=== PATIENT | male | born 1970 | race Caucasian/White ===

== ENCOUNTER 2022-10-29 12:32 | Outpatient (OUT) | payer OTHER, SELFPAY ==
[2022-10-29 14:43] LABS: Alanine Aminotransferase 27 U/L (16-63); Albumin Globulin Ratio 0.9; Albumin Level 3.7 g/dL (3.4-5.0); Alkaline Phosphatase 52 U/L (46-116); Aspartate Amino Transferase 17 U/L (15-37); BUN Creatinine Ratio 16.5; Bilirubin Total 0.3 mg/dL (0.2-1.0); Calcium 8.9 mg/dL (8.5-10.1); Carbon Dioxide 27.8 mmol/L (21.0-32.0); Chloride 101 mmol/L (98-107); Chol HDL Ratio 4.1; Cholesterol 161 mg/dL (<=200); Estimated GFR (African America >60 (>=60); Estimated GFR (Non-African Ame >60 (>=60); Globulin 3.9 g/dL; Glucose 139 mg/dL (74-106); HDL Cholesterol 39 mg/dL (40-60); Potassium 3.8 mmol/L (3.5-5.1); Sodium 135 mmol/L (136-145); Total Protein 7.6 g/dL (6.4-8.2); Triglycerides 81 mg/dL (<=150); VLDL CHOLESTEROL 16.2 mg/dL
[2022-10-29 14:58] LABS: Estimated Average Glucose 194 mg/dL; Glycohemoglobin A1C 8.4 % (4.5-6.2)
[2022-10-29 15:06] LABS: Prostate Specific Antigen Scrn 1.09 ng/mL (<=4.00)
== END 2022-10-29 12:33 | disposition home or self-care (01) ==
LOC: LAB 12:40
PROVIDERS: PCP Family Medicine; Visit Provider Family Medicine
DX: E11.65 Type 2 diabetes mellitus with hyperglycemia (principal); Z12.5 Encounter for screening for malignant neoplasm of prostate
CPT/HCPCS: 36415; 80053; 80061; 83036; G0103

== ENCOUNTER 2023-09-09 08:03 | Outpatient (OUT) | payer OTHER, SELFPAY ==
--- NOTE | 2023-09-09 08:11 | ECG_ITS ---
[facility] Test Date: 2023-09-09 Pat Name: QING PETIT Department: Room: - Gender: Male [employer]: : [id number] Requested By: SERGEY JENSEN Order Number: [id number] Reading MD: JOYCE MOLINA Measurements Intervals [place] Rate: 55 P: 32 VA: 153 QRS: 14 QRSD: 90 T: 7 QT: 474 QTc: 457 Interpretive Statements SINUS BRADYCARDIA PROLONGED QT INTERVAL No previous ECG available for comparison Electronically Signed On 09-09-2023 22:16:27 EDT by JOYCE MOLINA
[2023-09-09 09:02] LABS: Basophils Absolute Auto 0.1 10^3/uL (0.0-0.1); Basophils Percent Auto 0.9 % (0.2-2.0); Eosinophils Absolute Auto 0.2 10^3/uL (0.0-0.7); Eosinophils Percent Auto 2.6 % (0.9-7.0); Hematocrit 40.4 % (42.0-54.0); Hemoglobin 13.3 g/dL (14.0-18.0); Immature Granulocytes Abs Auto 0.03 10^3/uL (0.00-0.03); Immature Granulocytes Pct Auto 0.4 % (0.0-0.5); Lymphocytes Absolute Auto 2.1 10^3/uL (1.2-3.8); Lymphocytes Percent Auto 26.4 % (20.5-60.0); Mean Corpuscular HGB Conc 32.9 g/dL (29.9-35.2); Mean Corpuscular Hemoglobin 29.8 pg (25.9-34.0); Mean Corpuscular Volume 90.6 fL (80.0-94.0); Mean Platelet Volume 10.6 fL (9.5-13.5); Monocytes Absolute Auto 0.8 10^3/uL (0.3-0.8); Monocytes Percent Auto 9.6 % (1.7-12.0); Neutrophils Absolute Auto 4.8 10^3/uL (1.4-6.5); Neutrophils Percent Auto 60.1 % (43.0-75.0); Platelet Count 252 10^3/uL (150-450); Red Blood Count 4.46 10^6/uL (4.70-6.10); White Blood Count 7.9 10^3/uL (4.0-11.0)
[2023-09-09 09:22] LABS: Anion Gap 12.6; BUN Creatinine Ratio 24.8; Calcium 8.8 mg/dL (8.5-10.1); Carbon Dioxide 28.4 mmol/L (21.0-32.0); Chloride 105 mmol/L (98-107); Estimated GFR (African America >60 (>=60); Estimated GFR (Non-African Ame >60 (>=60); Glucose 118 mg/dL (74-106); Sodium 142 mmol/L (136-145)
[2023-09-09 10:03] LABS: INR 1.03; Partial Thromboplastin Time 33.1 sec (22.3-36.2); Prothrombin Time 10.9 sec (9.0-11.6)
== END 2023-09-09 08:04 | disposition home or self-care (01) ==
LOC: PST 08:04
PROVIDERS: PCP Family Medicine; Visit Provider Otolaryngology
DX: Z01.810 Encounter for preprocedural cardiovascular examination (principal); Z01.812 Encounter for preprocedural laboratory examination; R04.0 Epistaxis; J34.89 Other specified disorders of nose and nasal sinuses
CPT/HCPCS: 80048; 85025; 85610; 85730; 93005

== ENCOUNTER 2023-09-17 10:45 | Day surgery (SDC) | payer OTHER, SELFPAY ==
[2023-09-09 08:48] VITALS: BP 112/74; PULSE 55; TEMP 36.4; O2SAT 99; BMI 32.2
[2023-09-17] VITALS (9 sets, daily range): BP systolic 109–130; BP diastolic 61–78; PULSE 54–62; TEMP 36.3–36.6; O2SAT 86–98; BMI 32.2
--- NOTE | 2023-09-17 | OP_ITS ---
OPERATION DATE: 09/17/2023 PREOPERATIVE DIAGNOSIS: Recurrent epistaxis. POSTOPERATIVE DIAGNOSIS: Recurrent epistaxis. PROCEDURE: Right nasal endoscopy and cautery. ANESTHESIA: General endotracheal. COMPLICATIONS: None. FINDINGS: Multiple prominent right anterior septal veins. INDICATIONS: Patient presents with a couple year history of bleeding twice weekly from the right anterior nose. PROCEDURE: Patient identified in the holding area and taken back to the OR where he was placed in the supine position. After induction of general endotracheal anesthesia, the right nose was approached with a 30 degree nasal endoscope, and under endoscopic guidance, prominent veins of the anterior septum were cauterized with suction Bovie. The remainder of the nose was examined with the endoscope and no other abnormality was noted on the right. The patient was then awakened and taken to the recovery room in good condition. BRANDON
[2023-09-17] MEDS: LACTATED RINGER'S SOLUTION 1,000 ML 50 ML IV (11:18)
[2023-09-17] MEDS: OXYMETAZOLINE HCL 0.05% NASAL SPRAY 30 SPRAY NS (12:05)
[2023-09-17] MEDS: BACITRACIN OINTMENT 28.4 GM TUBE 1 APPLIC TOPICAL (12:05)
== END 2023-09-17 13:14 | disposition home or self-care (01) ==
PROVIDERS: PCP Family Medicine; Visit Provider Otolaryngology
PROC: (CPT 160; principal; 2023-09-17 12:00)
DX: R04.0 Epistaxis (principal); J34.89 Other specified disorders of nose and nasal sinuses; E11.9 Type 2 diabetes mellitus without complications; Z79.84 Long term (current) use of oral hypoglycemic drugs; Z79.85 Long-term (current) use of injectable non-insulin antidiabetic drugs; G47.33 Obstructive sleep apnea (adult) (pediatric); E78.5 Hyperlipidemia, unspecified; I10 Essential (primary) hypertension
CPT/HCPCS: 31238; 36415; J1100; J2250; J2405; J2704

== ENCOUNTER 2024-05-18 09:32 | Outpatient (OUT) | payer OTHER, SELFPAY ==
[2024-05-18 10:08] LABS: Estimated Average Glucose 111 mg/dL; Glycohemoglobin A1C 5.5 % (4.5-6.2)
[2024-05-18 10:22] LABS: Basophils Absolute Auto 0.1 10^3/uL (0.0-0.1); Basophils Percent Auto 0.9 % (0.2-2.0); Eosinophils Absolute Auto 0.2 10^3/uL (0.0-0.7); Eosinophils Percent Auto 2.6 % (0.9-7.0); Hematocrit 39.8 % (42.0-54.0); Hemoglobin 12.5 g/dL (14.0-18.0); Immature Granulocytes Abs Auto 0.02 10^3/uL (0.00-0.03); Immature Granulocytes Pct Auto 0.2 % (0.0-0.5); Lymphocytes Absolute Auto 3.2 10^3/uL (1.2-3.8); Lymphocytes Percent Auto 39.3 % (20.5-60.0); Mean Corpuscular HGB Conc 31.4 g/dL (29.9-35.2); Mean Corpuscular Hemoglobin 29.9 pg (25.9-34.0); Mean Corpuscular Volume 95.2 fL (80.0-94.0); Monocytes Absolute Auto 0.7 10^3/uL (0.3-0.8); Monocytes Percent Auto 8.6 % (1.7-12.0); Neutrophils Absolute Auto 3.9 10^3/uL (1.4-6.5); Neutrophils Percent Auto 48.4 % (43.0-75.0); Platelet Count 205 10^3/uL (150-450); Red Blood Count 4.18 10^6/uL (4.70-6.10); Red Cell Distribution Width 13.3 % (11.0-15.0)
[2024-05-18 10:42] LABS: Alanine Aminotransferase 25 U/L (16-63); Albumin Level 3.4 g/dL (3.4-5.0); Alkaline Phosphatase 54 U/L (46-116); Anion Gap 10.7; Aspartate Amino Transferase 17 U/L (15-37); BUN Creatinine Ratio 24.5; Bilirubin Total 0.4 mg/dL (0.2-1.0); Carbon Dioxide 29.8 mmol/L (21.0-32.0); Chloride 106 mmol/L (98-107); Chol HDL Ratio 2.7; Cholesterol 131 mg/dL (<=200); Estimated GFR (African America >60 (>=60 mL/min/1.73m^2); Estimated GFR (Non-African Ame >60 (>=60 mL/min/1.73m^2); Globulin 3.5 g/dL; Glucose 90 mg/dL (74-106); HDL Cholesterol 49 mg/dL (40-60); LDL Cholesterol Calculated 66.8 mg/dL; Potassium 4.5 mmol/L (3.5-5.1); Sodium 142 mmol/L (136-145); Thyroid Stimulating Hormone 2.452 uIU/mL (0.358-3.740); Total Protein 6.9 g/dL (6.4-8.2); Triglycerides 76 mg/dL (<=150); VLDL CHOLESTEROL 15.2 mg/dL
[2024-05-18 11:35] LABS: Creatinine Urine Random 94.27 mg/dL (20.00-300.00); Microalbum Creatinine Ratio Ur 13.7 mg/g (0.0-29.9); Microalbumin Urine Random <1.3 mg/dL (<=30.0)
[2024-05-18 11:35] LABS: Prostate Specific Antigen Scrn 0.68 ng/mL (<=4.00)
== END 2024-05-18 09:33 | disposition home or self-care (01) ==
PROVIDERS: PCP Family Medicine; Visit Provider Family Medicine
DX: Z00.00 Encounter for general adult medical examination without abnormal findings (principal); E11.65 Type 2 diabetes mellitus with hyperglycemia; Z12.5 Encounter for screening for malignant neoplasm of prostate
CPT/HCPCS: 36415; 80053; 80061; 82043; 82570; 83036; 84443; 85025; G0103

== ENCOUNTER 2024-06-23 07:46 | Outpatient (RCR) | payer OTHER, SELFPAY ==
[2024-06-23 15:59] LABS: Basophils Absolute Auto 0.1 10^3/uL (0.0-0.1); Basophils Percent Auto 0.9 % (0.2-2.0); Eosinophils Absolute Auto 0.2 10^3/uL (0.0-0.7); Eosinophils Percent Auto 2.7 % (0.9-7.0); Hematocrit 41.8 % (42.0-54.0); Hemoglobin 13.7 g/dL (14.0-18.0); Immature Granulocytes Abs Auto 0.01 10^3/uL (0.00-0.03); Immature Granulocytes Pct Auto 0.2 % (0.0-0.5); Lymphocytes Absolute Auto 2.5 10^3/uL (1.2-3.8); Lymphocytes Percent Auto 38.9 % (20.5-60.0); Mean Corpuscular HGB Conc 32.8 g/dL (29.9-35.2); Mean Corpuscular Hemoglobin 30.5 pg (25.9-34.0); Mean Corpuscular Volume 93.1 fL (80.0-94.0); Mean Platelet Volume 10.6 fL (9.5-13.5); Monocytes Absolute Auto 0.5 10^3/uL (0.3-0.8); Monocytes Percent Auto 7.5 % (1.7-12.0); Neutrophils Absolute Auto 3.2 10^3/uL (1.4-6.5); Neutrophils Percent Auto 49.8 % (43.0-75.0); Platelet Count 246 10^3/uL (150-450); Red Blood Count 4.49 10^6/uL (4.70-6.10); Reticulocyte Pct Auto 0.87 % (0.60-3.10); White Blood Count 6.4 10^3/uL (4.0-11.0)
[2024-06-23 16:05] LABS: Erythrocyte Sedimentation Rate 18 mm/hr (<=20)
[2024-06-23 16:17] LABS: Percent Iron Saturation 25.6 %
[2024-06-23 16:18] LABS: C Reactive Protein <0.50 mg/dL (<=0.50); Lactate Dehydrogenase 192 U/L (85-227)
[2024-06-25 03:07] LABS: Vitamin B12 447 pg/mL (232-1245)
[2024-06-26 12:08] LABS: Alpha-1-Globulin 0.3 g/dL (0.0-0.4); Alpha-2-Globulin 0.7 g/dL (0.4-1.0); Free Kappa Lt Chains,S 21.3 mg/L (3.3-19.4); Free Lambda Lt Chains,S 15.6 mg/L (5.7-26.3); Gamma Globulin 1.2 g/dL (0.4-1.8); Immunoglobulin A, Qn, Serum 389 mg/dL (90-386); Immunoglobulin G, Qn, Serum 1241 mg/dL (603-1613); Immunoglobulin M, Qn, Serum 80 mg/dL (20-172); Kappa/Lambda Ratio,S 1.37 (0.26-1.65); Protein, Total 7.4 g/dL (6.0-8.5)
[2024-07-02 10:08] LABS: Immunoglobulin E, Total 416 IU/mL (6-495)
== END 2024-06-24 08:19 | disposition home or self-care (01) ==
LOC: HEMC 07:46
PROVIDERS: PCP Family Medicine; Visit Provider Internal Medicine Hematology & Oncology
DX: D64.9 Anemia, unspecified (principal)
CPT/HCPCS: 36415; 82607; 82728; 82746; 82784; 82785; 83521; 83540; 83550; 83615; 84155; 84165; 85025; 85045; 85652; 86140; 86334; G0463

== ENCOUNTER 2024-07-14 07:38 | Outpatient (RCR) | payer OTHER, SELFPAY | END 2024-07-15 08:32 | disposition home or self-care (01) | LOC: HEMC 07:38 | PROVIDERS: PCP Family Medicine; Visit Provider Internal Medicine Hematology & Oncology | DX: D64.9 Anemia, unspecified (principal); Z80.0 Family history of malignant neoplasm of digestive organs; Z80.1 Family history of malignant neoplasm of trachea, bronchus and lung; I10 Essential (primary) hypertension; E11.9 Type 2 diabetes mellitus without complications; Z79.84 Long term (current) use of oral hypoglycemic drugs; R53.83 Other fatigue | CPT/HCPCS: G0463 ==